=== PATIENT | male | born 1945 | race Caucasian/White ===

== ENCOUNTER → 2021-03-27 | Outpatient (CLI) | payer MEDICARE ==
[~2021-03-27] MED LIST: AMLODIPINE BESYL5 MG PO; ASPIRIN81 MG PO; CELEXA20 MG PO; COQ-10100 MG PO; CYCLOBENZAPRINE5 MG PO; GLUCOSAMINE HC500 MG PO; ISOSORBIDE MONO30 MG PO; ONCE DAILY1 EACH PO; PRAVACHOL80 MG PO; PRILOSEC OTC20 MG PO; PRINIVIL5 MG PO; PROSCAR5 MG PO; TYLENOL 500 MG500 MG PO; VITAMIN B-121000 MCG PO; VITAMIN D-32000 UNIT PO
== END ==
LOC: EXRD 09:31
DX: M25.561 Pain in right knee (principal); M25.562 Pain in left knee; M17.0 Bilateral primary osteoarthritis of knee
CPT/HCPCS: 73560

== ENCOUNTER → 2021-05-07 | Outpatient (CLI) | payer MEDICARE | LOC: CT 09:47 | DX: R10.9 Unspecified abdominal pain (principal); K92.1 Melena; R19.7 Diarrhea, unspecified; Z85.038 Personal history of other malignant neoplasm of large intestine | CPT/HCPCS: Q9967 ==